=== PATIENT | female | born 1985 | race Caucasian/White ===

== ENCOUNTER 2016-08-17 09:42 | Emergency (ER) | payer OTHER ==
[~2016-08-17] VITALS: Ht 160 cm; Wt 93.8 kg
[2016-08-17 09:48] VITALS: TEMP 36.8; Ht 160 cm; Wt 93.8 kg
[2016-08-17] MEDS ORDERED: OXYCODONE HCL IR 5 MG TAB (IMMEDIATE RELEASE) PO STA (09:55)
--- NOTE | 2016-08-17 10:03 | EMERGENCY ROOM VISIT NOTE ---
History Report prepared by Olivia: Lavinia Duncan Under the Supervision of: Paitto HollingsworthO. 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 The patient states that she was using 3 foot stilts today and her foot got caught and she fell off of them onto the concrete. She reports that she hit her head on the concrete and complains of head pain, facial pain, left hand pain and finger pain, and knee pain. She denies any loss of consciousness, groin pain, neck pain, shoulder pain, and abdominal pain. The patient notes a history of hysterectomy. Source of History: patient Onset: just MEDICAL PAYMENT POSTER Position: arm (left) Timing: constant Associated Symptoms: + headache, No LOC, No neck pain, No abdominal pain Note: Pt complains of facial pain, left hand pain and finger pain, and knee pain. She denies any groin pain, neck pain. Review of Systems See HPI for pertinent positives & negatives. A total of 10 systems reviewed and were otherwise negative. Past Medical & Surgical Surgical Problems: (1) H/O: hysterectomy Family History No pertinent family history stated. Social History Smoking Status: Current Some Day Smoker Alcohol Use: occasionally Drug Use: none Marital Status: Housing Status: lives with significant other Occupation Status: employed Current/Historical Medications Scheduled Sertraline (Zoloft), 100 MG PO DAILY Scheduled PRN Oxycodone Immediate Rel Tab (Roxicodone Ir), 1-2 TAB PO Q4H PRN for Severe Pain Allergies Coded Allergies: Aspirin (Unverified Allergy, Unknown, ., 08/17/16) Penicillins (Unverified Allergy, Unknown, ., 08/17/16) Physical Exam Vital Signs Date Time Temp Pulse Resp B/P (MAP) Pulse Ox O2 Delivery O2 Flow Rate FiO2 08/17/16 09:48 36.8 91 17 115/71 96 Room Air Physical Exam GENERAL: Patient is awake, alert, somewhat anxious and uncomfortable appearing , ambulates without difficulyt . Patient is resting comfortably and showing no signs of anxiety EYES: The conjunctivae are clear. The pupils are round and reactive. EARS, NOSE, MOUTH AND THROAT: The nose is without any evidence of any deformity. Mucous membranes are moist tongue is midline. Mild tenderness over the left cheek, no deformity or depression appreciated. NECK: The neck is nontender and supple. Cervical spine was clinically cleared. RESPIRATORY: Normal respiratory effort is noted there is no evidence of wheezing rhonchi or rales CARDIOVASCULAR: Regular rate and rhythm noted there no murmurs rubs or gallops normal S1 normal S2 GASTROINTESTINAL: The abdomen is soft. Bowel sounds are present in all quadrants. Abdomen is nontender BACK: No midline tenderness or or step-off noted range of motion in flexion extension as well as rotation no signs of muscle spasm noted MUSCULOSKELETAL/EXTREMITIES: There is no evidence of gross deformity full range of motion is noted in the hips and shoulders. Full ROM was noted in both lower extremities, there was abrasion and tenderness over left patella, tenderness and swelling over left mid forearm over the left wrist, pain with ROM of left wrist, no significant deformity was appreciated. SKIN: There is no obvious evidence of any rash. There are no petechiae, pallor or cyanosis noted. NEUROLOGIC: Patient is awake alert and oriented x3 strength is symmetric patellar reflexes are 2+ bilaterally Medical Decision & Procedures ER Provider Diagnostic Interpretation: Radiology results as stated below per my review and radiologist interpretation: LEFT WRIST MIN 3 VIEWS ROUTINE FINDINGS: Alignment of the left wrist is anatomic. There is no acute fracture. Joint spaces are preserved. IMPRESSION: No acute fracture or dislocation of the left wrist. Electronically signed by: Anthony Samuel M.D. 08/17/2016 11:02 AM Dictated Date/Time: 08/17/2016 11:01 AM LEFT KNEE 1 OR 2 VIEWS ROUTINE FINDINGS: Alignment of the left knee is anatomic. There is no acute fracture. Joint spaces are preserved. There is no joint effusion. IMPRESSION: No acute fracture or joint effusion of the left knee. Electronically signed by: Anthony Samuel M.D. 08/17/2016 10:47 AM Dictated Date/Time: 08/17/2016 10:[address] SCAN OF THE FACIAL BONES WITHOUT IV CONTRAST FINDINGS: The skeletal structures are well mineralized. There is no evidence of facial bone fracture. The bony orbits are intact and the orbital contents are within normal limits. 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 The zygomatic arches, nasal bones, and pterygoid plates are preserved. The maxilla and mandible are intact. There are no layering blood products within the paranasal sinuses. The sinuses and mastoids are clear. The visualized calvarium and upper cervical spine are maintained. Partially imaged brain parenchyma is within normal limits. There are nasal, liver, and tongue piercings. IMPRESSION: There is no evidence of facial bone fracture. Electronically signed by: Thomas Levine M.D. 08/17/2016 11:18 AM Dictated Date/Time: 08/17/2016 11:[address] SCAN OF THE BRAIN WITHOUT IV CONTRAST FINDINGS: Brain parenchyma: The brain parenchyma is normal in appearance. There is no hemorrhage, mass effect, or evidence of acute territorial ischemia by CT criteria. Jackson-white matter is preserved. No extra-axial fluid collection is seen. Ventricles, sulci, cisterns: Normal in configuration. Intracranial vasculature: The visualized intracranial vasculature at the skull base is normal in appearance. Calvarium: There is no depressed calvarial fracture. Sinuses and mastoids: The visualized paranasal sinuses are clear. The mastoid air cells are well pneumatized. Orbits: The bony orbits are grossly intact. IMPRESSION: No acute intracranial abnormality. Electronically signed by: Thomas Levine M.D. 08/17/2016 11:10 AM Dictated Date/Time: 08/17/2016 11:09 AM LEFT HAND MIN 3 VIEWS ROUTINE FINDINGS: Alignment of the left hand is anatomic. There is no acute fracture within the left hand. Joint spaces are preserved. Carpal bones are intact. IMPRESSION: No acute fracture or dislocation within the left hand. Electronically signed by: Anthony Samuel M.D. 08/17/2016 11:03 AM Dictated Date/Time: 08/17/2016 11:02 AM LEFT FOREARM 2 VIEWS FINDINGS: AP and lateral views of the left forearm are obtained. No prior studies are available for comparison at the time of dictation. The skeletal structures are well mineralized. No fracture is seen. The elbow and wrist joints are grossly maintained. Mild dorsal soft tissue swelling is suggested. IMPRESSION: There is no radiographic evidence of left forearm fracture. Electronically signed by: Thomas Levine M.D. 08/17/2016 10:53 AM Dictated Date/Time: 08/17/2016 10:52 AM Medications Administered Medications (Trade) Dose Ordered Sig/Ray Route Start Time Stop Time Status Last Admin Dose Admin Oxycodone HCl (Roxicodone Immediate Rel Tab) 5 mg NOW STAT PO 08/17/16 09:55 08/17/16 09:57 DC 08/17/16 10:11 5 MG ED Course 0950: The patient was evaluated in room B3. A complete history and physical examination were performed. 0955: Oxycodone HCl 5mg PO. 1112: I reevaluated and updated the patient. 1144: I reevaluated and updated the patient. 1153: Upon reevaluation, the patient is doing well. I discussed the results and treatment plan with the patient. She verbalized agreement of the treatment plan. The patient was discharged home. Medical Decision Differential diagnosis: Etiologies such as fracture, dislocation, neurovascular compromise, compartment syndrome, soft tissue injury, as well as others were entertained. Medication Reconciliation: I attest that I have personally reviewed the patient' s current medications list. Blood pressure screening: Patient was found to have normal blood pressure on screening and does not require follow-up. The patient is a 30-year-old female who presented to the emergency department after a fall. 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 The patient fell from the height of the stilts which she thinks was roughly 3 feet. The patient struck the left side of her face her left upper extremity in her left knee. She was able to inability without difficulty. She did have a headache but no definite loss of consciousness was noted. The patient was treated with pain medication in the emergency department. I discussed the patient's review graphic studies with her. She was encouraged to rest and avoid any strenuous activity. She was also encouraged to follow-up with her doctor soon as possible for further evaluation. I also encouraged her to discuss whether or not she would require a referral to an orthopedic physician or have further radiographic studies if the pain in her left upper extremity especially did not improve. Otherwise she was encouraged to return to the emergency department immediately if symptoms change worsen or the need arises. [place] Drug Monitoring Program Search Results: patient reviewed within database Drug Monitoring Findings: The patient was prescribed Tramadol on the 12th but no other prescriptions. Impression Primary Impression: Fall Additional Impressions: Left wrist sprain Contusion of left arm Contusion of left knee Scribe Attestation The scribe's documentation has been prepared under my direction and personally reviewed by me in its entirety. I confirm that the note above accurately reflects all work, treatment, procedures, and medical decision making performed by me. Departure Information Dispostion Home / Self-Care Prescriptions Oxycodone Immediate Rel Tab (ROXICODONE IR) 5 Mg Tab 1-2 TAB PO Q4H Y for Severe Pain, #24 TAB Prov: Brody Savage, DO 08/17/16 Referrals No Doctor, Assigned (PCP) Forms HOME CARE DOCUMENTATION FORM, IMPORTANT VISIT INFORMATION, WORK / SCHOOL INSTRUCTIONS Patient Instructions ED Contusion Face, [facility] Additional Instructions Call your family to schedule a follow-up appointment. Continue using Tylenol as directed for mild pain. You may require further studies or possibly a referral to an orthopedic physician if symptoms do not improve. Discussed this with your family doctor. Problem Qualifiers Primary Impression: Fall Encounter type: initial encounter Qualified Codes: W19.XXXA - Unspecified fall, initial encounter Additional Impressions: Left wrist sprain Encounter type: initial encounter Qualified Codes: S63.502A - Unspecified sprain of left wrist, initial encounter Contusion of left arm Encounter type: initial encounter Qualified Codes: S40.022A - Contusion of left upper arm, initial encounter Contusion of left knee Encounter type: initial encounter Qualified Codes: S80.02XA - Contusion of left knee, initial encounter
--- NOTE | 2016-08-17 10:49 | DIAGNOSTIC IMAGING REPORT ---
LEFT KNEE 1 OR 2 VIEWS ROUTINE CLINICAL HISTORY: Left knee pain following fall. COMPARISON: None FINDINGS: Alignment of the left knee is anatomic. There is no acute fracture. Joint spaces are preserved. There is no joint effusion. IMPRESSION: No acute fracture or joint effusion of the left knee. Electronically signed by: Anthony Samuel M.D. 08/17/2016 10:47 AM Dictated Date/Time: 08/17/2016 10:46 AM
[2016-08-17] MEDS ORDERED: SERT-234 PO (10:54)
--- NOTE | 2016-08-17 10:54 | DIAGNOSTIC IMAGING REPORT ---
LEFT FOREARM 2 VIEWS CLINICAL HISTORY: Fall with left arm pain. FINDINGS: AP and lateral views of the left forearm are obtained. No prior studies are available for comparison at the time of dictation. The skeletal structures are well mineralized. No fracture is seen. The elbow and wrist joints are grossly maintained. Mild dorsal soft tissue swelling is suggested. IMPRESSION: There is no radiographic evidence of left forearm fracture. Electronically signed by: Thomas Levine M.D. 08/17/2016 10:53 AM Dictated Date/Time: 08/17/2016 10:52 AM
--- NOTE | 2016-08-17 11:03 | DIAGNOSTIC IMAGING REPORT ---
LEFT WRIST MIN 3 VIEWS ROUTINE CLINICAL HISTORY: Left wrist pain following fall. COMPARISON: None FINDINGS: Alignment of the left wrist is anatomic. There is no acute fracture. Joint spaces are preserved. IMPRESSION: No acute fracture or dislocation of the left wrist. Electronically signed by: Anthony Samuel M.D. 08/17/2016 11:02 AM Dictated Date/Time: 08/17/2016 11:01 AM
--- NOTE | 2016-08-17 11:04 | DIAGNOSTIC IMAGING REPORT ---
LEFT HAND MIN 3 VIEWS ROUTINE CLINICAL HISTORY: Left hand pain following fall. COMPARISON: None FINDINGS: Alignment of the left hand is anatomic. There is no acute fracture within the left hand. Joint spaces are preserved. Carpal bones are intact. IMPRESSION: No acute fracture or dislocation within the left hand. Electronically signed by: Anthony Samuel M.D. 08/17/2016 11:03 AM Dictated Date/Time: 08/17/2016 11:02 AM
--- NOTE | 2016-08-17 11:12 | DIAGNOSTIC IMAGING REPORT ---
CT SCAN OF THE BRAIN WITHOUT IV CONTRAST CLINICAL HISTORY: Fall. Trauma. COMPARISON STUDY: No priors. TECHNIQUE: Unenhanced axial CT scan of the brain is performed from the vertex to the skull base. Automated dose control exposure was utilized. FINDINGS: Brain parenchyma: The brain parenchyma is normal in appearance. There is no hemorrhage, mass effect, or evidence of acute territorial ischemia by CT criteria. Jackson-white matter is preserved. No extra-axial fluid collection is seen. Ventricles, sulci, cisterns: Normal in configuration. Intracranial vasculature: The visualized intracranial vasculature at the skull base is normal in appearance. Calvarium: There is no depressed calvarial fracture. Sinuses and mastoids: The visualized paranasal sinuses are clear. The mastoid air cells are well pneumatized. Orbits: The bony orbits are grossly intact. IMPRESSION: No acute intracranial abnormality. Electronically signed by: Thomas Levine M.D. 08/17/2016 11:10 AM Dictated Date/Time: 08/17/2016 11:09 AM
--- NOTE | 2016-08-17 11:19 | DIAGNOSTIC IMAGING REPORT ---
CT SCAN OF THE FACIAL BONES WITHOUT IV CONTRAST CLINICAL HISTORY: Fall. Left-sided facial injury. COMPARISON STUDY: CT scan of the brain performed concurrently on 08/17/2016. TECHNIQUE: High-resolution CT scan of the facial bones is performed. Images are reviewed in the axial, sagittal, and coronal planes. IV contrast was not administered for this examination. CT DOSE: 768.56 mGy.cm FINDINGS: The skeletal structures are well mineralized. There is no evidence of facial bone fracture. The bony orbits are intact and the orbital contents are within normal limits. 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 The zygomatic arches, nasal bones, and pterygoid plates are preserved. The maxilla and mandible are intact. There are no layering blood products within the paranasal sinuses. The sinuses and mastoids are clear. The visualized calvarium and upper cervical spine are maintained. Partially imaged brain parenchyma is within normal limits. There are nasal, liver, and tongue piercings. IMPRESSION: There is no evidence of facial bone fracture. Electronically signed by: Thomas Levine M.D. 08/17/2016 11:18 AM Dictated Date/Time: 08/17/2016 11:14 AM
[2016-08-17] MEDS ORDERED: OXYC1TAB3 PO (11:42)
[2016-08-17 11:58] VITALS: BP 131/83; PULSE 71; O2SAT 97
== END 2016-08-17 11:58 | disposition home or self-care (01) ==
LOC: C.EDB 09:44
DX: S63.502A Unspecified sprain of left wrist, initial encounter (principal); S40.022A Contusion of left upper arm, initial encounter; S80.02XA Contusion of left knee, initial encounter; W01.0XXA Fall on same level from slipping, tripping and stumbling without subsequent striking against object, initial encounter; F17.200 Nicotine dependence, unspecified, uncomplicated; Z90.710 Acquired absence of both cervix and uterus; Z79.899 Other long term (current) drug therapy; Z88.0 Allergy status to penicillin; Z88.6 Allergy status to analgesic agent

== ENCOUNTER 2017-03-17 12:41 | Emergency (ER) | payer OTHER ==
[~2017-03-17] VITALS: Ht 160 cm; Wt 101.9 kg
[~2017-03-17 12:41] MED LIST: SERT-234 PO
[2017-03-17 12:46] VITALS: Ht 160 cm; Wt 101.9 kg
[2017-03-17] MEDS ORDERED: SODIUM CHLORIDE 0.9% 1000ML 1,000 ML IV STA (13:51)
[2017-03-17 14:06] VITALS: O2SAT 100
[2017-03-17 14:14] LABS: BASO % 0.2 %; BASO ABS # 0.02 K/uL (0-0.2); EOS % 0.6 %; EOS ABS # 0.06 K/uL (0-0.5); HEMATOCRIT 39.8 % (37-47); HEMOGLOBIN 13.6 g/dL (12.0-16.0); IG# 0.05 K/uL (0.00-0.02); LYMPH % 17.5 %; LYMPH ABS # 1.75 K/uL (1.2-3.4); MEAN CELL VOLUME 90.2 fL (80-100); MEAN CORPUSCULAR HEMOGLOBIN 30.8 pg (25-34); MEAN CORPUSCULAR HGB CONC 34.2 g/dl (32-36); MEAN PLATELET VOLUME 9.4 fL (7.4-10.4); MONO % 6.1 %; MONO ABS # 0.61 K/uL (0.11-0.59); NEUT % 75.1 %; PLATELET COUNT 240 K/uL (130-400); RED CELL DISTRIBUTION WIDTH SD 42.8 fL (36.4-46.3); WHITE BLOOD COUNT 9.99 K/uL (4.8-10.8)
[2017-03-17 14:39] LABS: ALBUMIN 4.3 gm/dl (3.4-5.0); ALT/SGPT 15 U/L (12-78); AST/SGOT 12 U/L (15-37); BLOOD UREA NITROGEN 15 mg/dl (7-18); CALCIUM 9.6 mg/dl (8.5-10.1); CARBON DIOXIDE 27 mmol/L (21-32); CREATININE 0.89 mg/dl (0.60-1.20); GLUCOSE 65 mg/dl (70-99); POTASSIUM 3.9 mmol/L (3.5-5.1); SODIUM 137 mmol/L (136-145)
[2017-03-17 14:49] LABS: ALKALINE PHOSPHATASE 69 U/L (45-117); TOTAL PROTEIN 7.8 gm/dl (6.4-8.2)
--- NOTE | 2017-03-17 15:48 | DIAGNOSTIC IMAGING REPORT ---
HEAD WITHOUT CONTRAST (CT) CT DOSE: 638.56 mGycm HISTORY: Mental status change Dizziness TECHNIQUE: Multiaxial CT images of the head were performed without the use of intravenous contrast. A dose lowering technique was utilized adhering to the principles of ALARA. Comparison: 08/17/2016 Findings: The paranasal sinuses and mastoid air cells are clear. The calvarium and skull base are intact. The ventricles and sulci are within normal limits. There is no mass, hematoma, midline shift, or acute infarct. Impression: No acute intracranial abnormality. The above report was generated using voice recognition software. It may contain grammatical, syntax or spelling errors. Electronically signed by: Cash Hughes M.D. 03/17/2017 3:47 PM Dictated Date/Time: 03/17/2017 3:46 PM
--- NOTE | 2017-03-17 16:00 | EMERGENCY ROOM VISIT NOTE ---
History First contact with patient: 13:43 Chief Complaint: DIZZY Stated Complaint: DIZZY, FEELS LIKE GOING TO PASS OUT - SENT BY History of Present Illness The patient is a 31 year old female who presents to the Emergency Room via private vehicle accompanied by male with complaints of "dizzy, feels like going to pass outsent by ". The patient states that for the past 2 weeks she has been feeling dizzy. She states that it acutely worsened after she was weaned off her Zoloft and began up on Wellbutrin. She also states that she fell about one week ago and struck a 2x4 piece of wood. She has been dizzy, but denies any loss of consciousness with the fall. She has never had this before but does state that she has tried meclizine in the past without relief. She denies any history of vertigo, chest pain, shortness of breath or vomiting. The dizziness as if the room is moving. There is no speech troubles or weakness. She denies chance of noting that she had a hysterectomy in the past. Review of Systems A complete 10-point Review of Systems was discussed with the patient, with pertinent positives and negatives listed in the History of Present Illness. All remaining Review of Systems questions can be considered negative unless otherwise specified. Past Medical/Surgical History Surgical Problems: (1) H/O: hysterectomy Social History Smoking Status: Former Smoker Alcohol Use: occasionally Drug Use: none Marital Status: Housing Status: lives with significant other Occupation Status: employed Current/Historical Medications Scheduled Doxycycline (Monohydrate) (Doxycycline), 100 MG PO BID Sertraline (Zoloft), 100 MG PO DAILY Physical Exam Vital Signs Date Time Temp Pulse Resp B/P (MAP) Pulse Ox O2 Delivery O2 Flow Rate FiO2 03/17/17 17:18 36.8 78 15 112/68 100 03/17/17 17:17 78 15 112/68 100 Room Air 03/17/17 15:21 77 15 100 03/17/17 15:16 76 16 99 03/17/17 15:01 116/67 03/17/17 14:46 78 20 99 03/17/17 14:41 72 13 99 03/17/17 14:31 92/57 03/17/17 14:11 80 18 98 03/17/17 14:10 77 18 105/84 98 Room Air 03/17/17 14:09 105/84 03/17/17 14:08 131/95 03/17/17 14:07 79 03/17/17 14:06 76 18 121/70 98 Room Air 82 129/76 75 131/95 03/17/17 14:06 100 Room Air 03/17/17 12:46 36.8 97 18 117/74 98 Room Air Physical Exam VITAL SIGNS - Vital signs and nursing notes were reviewed. Stable. Afebrile. Normotensive. GENERAL -31-year-old female appearing her stated age who is in no acute distress. Communicates well with provider and answers questions appropriately. SKIN - Without rashes. No petechial rashes. HEAD - NC/AT. EYES - PERRL with EOMI bilaterally. Sclera anicteric. EARS - No deformities of external structures noted on gross examination bilaterally. External auditory canals without discharge or otorrhea. Tympanic membranes pearly garcia without retraction or bulging. No fluid or purulent material visualized behind the TM. Handle of malleus, umbo, cone of light, pars tensa/flaccid all easily visualized. NOSE - Midline and without cyanosis. No epistaxis or purulent drainage noted. MOUTH/OROPHARYNX - Without perioral cyanosis. Buccal mucosa pink and moist and without leukoplakia. Tongue midline with equal elevation of palate bilaterally. NECK - Neck with FROM. Supple to palpation. No nuchal rigidity. LUNGS - Chest wall symmetric without accessory muscle use, intercostals retractions, or central cyanosis. Normal vesicular breath sounds CTA B/L. No wheezes, rales, or rhonchi appreciated. CARDIAC - RRR with S1/S2. There is a systolic murmur noted. EXTREMITIES - No clubbing or peripheral cyanosis. No pretibial edema present. +5 /5 strength noted in UE/LE bilaterally. NEUROLOGIC - Cranial nerves II through XII grossly intact. Sensory intact to light touch throughout. PSYCH - A&O, and cooperates fully with examiner. Pt is very pleasant and interacts well with examiner. Medical Decision & Procedures ER Provider Diagnostic Interpretation: HEAD WITHOUT CONTRAST (CT) CT DOSE: 638.56 mGycm HISTORY: Mental status change Dizziness TECHNIQUE: Multiaxial CT images of the head were performed without the use of intravenous contrast. A dose lowering technique was utilized adhering to the principles of ALARA. Comparison: 08/17/2016 Findings: The paranasal sinuses and mastoid air cells are clear. The calvarium and skull base are intact. The ventricles and sulci are within normal limits. There is no mass, hematoma, midline shift, or acute infarct. Impression: No acute intracranial abnormality. The above report was generated using voice recognition software. It may contain grammatical, syntax or spelling errors. Electronically signed by: Cash Hughes M.D. 03/17/2017 3:47 PM Dictated Date/Time: 03/17/2017 3:46 PM Laboratory Results 03/17/17 14:00 Red Blood Count 4.41, Mean Corpuscular Volume 90.2, Mean Corpuscular Hemoglobin 30.8, Mean Corpuscular Hemoglobin Concent 34.2, Mean Platelet Volume 9.4, Neutrophils (%) (Auto) 75.1, Lymphocytes (%) (Auto) 17.5, Monocytes (%) (Auto) 6.1, Eosinophils (%) (Auto) 0.6, Basophils (%) (Auto) 0.2, Neutrophils # (Auto) 7.50, Lymphocytes # (Auto) 1.75, Monocytes # (Auto) 0.61, Eosinophils # (Auto) 0.06, Basophils # (Auto) 0.02 03/17/17 14:00 Test 03/17/17 14:00 White Blood Count 9.99 K/uL (4.8-10.8) Red Blood Count 4.41 M/uL (4.2-5.4) Hemoglobin 13.6 g/dL (12.0-16.0) Hematocrit 39.8 % (37-47) Mean Corpuscular Volume 90.2 fL (80-100) Mean Corpuscular Hemoglobin 30.8 pg (25-34) Mean Corpuscular Hemoglobin Concent 34.2 g/dl (32-36) Platelet Count 240 K/uL (130-400) Mean Platelet Volume 9.4 fL (7.4-10.4) Neutrophils (%) (Auto) 75.1 % Lymphocytes (%) (Auto) 17.5 % Monocytes (%) (Auto) 6.1 % Eosinophils (%) (Auto) 0.6 % Basophils (%) (Auto) 0.2 % Neutrophils # (Auto) 7.50 K/uL (1.4-6.5) Lymphocytes # (Auto) 1.75 K/uL (1.2-3.4) Monocytes # (Auto) 0.61 K/uL (0.11-0.59) Eosinophils # (Auto) 0.06 K/uL (0-0.5) Basophils # (Auto) 0.02 K/uL (0-0.2) RDW Standard Deviation 42.8 fL (36.4-46.3) RDW Coefficient of Variation 13.0 % (11.5-14.5) Immature Granulocyte % (Auto) 0.5 % Immature Granulocyte # (Auto) 0.05 K/uL (0.00-0.02) Prothrombin Time 10.4 SECONDS (9.0-12.0) Prothromb Time International Ratio 1.0 (0.9-1.1) Activated Partial Thromboplast Time 27.0 SECONDS (21.0-31.0) Partial Thromboplastin Ratio 1.0 Urine Color YELLOW Urine Appearance CLEAR (CLEAR) Urine pH 6.0 (4.5-7.5) Urine Specific [place] 1.018 (1.000-1.030) Urine Protein NEG (NEG) Urine Glucose (UA) NEG (NEG) Urine Ketones NEG (NEG) Urine Occult Blood NEG (NEG) Urine Nitrite NEG (NEG) Urine Bilirubin NEG (NEG) Urine Urobilinogen NEG (NEG) Urine Leukocyte Esterase TRACE (NEG) Urine WBC (Auto) 1-5 /hpf (0-5) Urine RBC (Auto) 0-4 /hpf (0-4) Urine Hyaline Casts (Auto) 1-5 /lpf (0-5) Urine Epithelial Cells (Auto) >30 /lpf (0-5) Urine Bacteria (Auto) 2+ (NEG) Anion Gap 6.0 mmol/L (3-11) Est Creatinine Clear Calc Drug Dose 103.4 ml/min Estimated GFR () 99.4 Estimated GFR (Non- 85.8 BUN/Creatinine Ratio 17.1 (10-20) Calcium Level 9.6 mg/dl (8.5-10.1) Magnesium Level 2.2 mg/dl (1.8-2.4) Total Bilirubin 0.6 mg/dl (0.2-1) Aspartate Amino Transf (AST/SGOT) 12 U/L (15-37) Alanine Aminotransferase (ALT/SGPT) 15 U/L (12-78) Alkaline Phosphatase 69 U/L (45-117) Troponin I < 0.015 ng/ml (0-0.045) Total Protein 7.8 gm/dl (6.4-8.2) Albumin 4.3 gm/dl (3.4-5.0) Globulin 3.5 gm/dl (2.5-4.0) Albumin/Globulin Ratio 1.2 (0.9-2) Thyroid Stimulating Hormone (TSH) 1.880 uIu/ml (0.300-4.500) Lyme Disease IgG Antibody NEG (NEG) Medications Administered Medications (Trade) Dose Ordered Sig/Ray Route Start Time Stop Time Status Last Admin Dose Admin Sodium Chloride 1,000 ml @ 999 mls/hr Q1H1M STAT IV 03/17/17 13:51 03/17/17 14:51 DC 03/17/17 14:12 999 MLS/HR Medical Decision Patient was seen and evaluated as above. She presents to us today with dizziness. She is nontoxic on exam, and vital signs are stable. IV access was initiated, and the above workup was performed. She presents to us today with 2 weeks of dizziness. She recently was weaned off of Zoloft (Wellbutrin. There was only minimal dizziness before this titration change. There is no concerning leukocytosis or anemia. Coags normal. Patient metabolic panel reveals no evidence of kidney or liver failure. Her glucose is slightly low at 65. TSH normal. Troponin negative. Urine reveals trace leukocyte, 2+ urine but many epithelial cells. Lyme IgM positive. I suspect that the dizziness prior to be from Lyme disease, and was exacerbated and worsened by her recent medication change. Her EKG per my interpretation does reveal normal sinus rhythm, but there is T-wave inversion in leads V1 and V2. There is no previous for comparison. She does note that she was worked up in the past for her murmur , but has not recently. I recommend she follow up with the family doctor for her EKG and murmur. I also we'll begin treatment with doxycycline. She was offered medication to help with the dizziness, but notes that she has had meclizine in the past without relief. I suspect the dizziness is likely related to her medication change as well as the Lyme disease. I recommend she call her family doctor to schedule follow-up. She was educated upon management , educated upon worrisome symptoms in which to return, had questions answered at discharge, it was discharged initially. In the evaluation and treatment of this patient, the following differential diagnoses were considered: Concussion, Contrecoup Injury, Brain Tumor, Depression, Encephalitis, Hypothyroidism, Meningitis, CVA, TIA, Migraine, Cluster Headache, Intracranial Abnormality, Intracranial Hemorrhage, Subdural Hematoma, Subarachnoid Hemorrhage, Hydrocephalus. Impression Primary Impression: Dizziness Additional Impression: Lyme disease, acute Departure Information Dispostion Home / Self-Care Condition GOOD Prescriptions Doxycycline (Monohydrate) (Doxycycline) 100 Mg Cap 100 MG PO BID for 21 Days, #42 TABS Prov: Porfirio Jorge PA-C 03/17/17 Referrals Kendell Balbuena PA-C (PCP) Patient Instructions [facility] Additional Instructions You have been treated in the Emergency Department for a dizziness. Initial Lyme testing is positive. Please call back in 5 days at [phone] for final results. This may also be your medication (wellbutrin) Please also follow up for the ekg For Lyme, you have been prescribed Doxycycline to be taken as prescribed. This is an antibiotic. All antibiotics have the potential to cause diarrhea. Stop this medication and contact a medical provider if you were to develop any significant adverse side effects including: wheezing, shortness of breath, passing out, vomiting, or a diffuse rash. Always take antibiotics as directed and COMPLETE the ENTIRE course regardless of the improvement of your symptoms. Protect yourself with sunscreen while on this antibiotic as it increases your skin's sensitivity to the light and cause bad sunburns. In addition, you should be sure to take this pill after eating. Make sure the pill is completely swallowed as this medication can cause irritation to the lining of the esophagus. Do NOT drink milk or eat anything with large amounts of Calcium in them 1 hour prior to taking this medication as this will decrease the effectiveness of the medication. For pain control, you can use the following [id number] medicines - Regular strength (325mg/tab) Tylenol (acetaminophen) 2 tabs every 4-6 hours as needed. Do not exceed 12 tablets in a 24 hour period. Avoid taking more than 3 grams (3000 mg) of Tylenol per day. This includes any other sources of acetaminophen you may take on a regular basis. - Regular strength (200 mg/tab) Advil (ibuprofen) 1-2 tabs every 4-6 hours as needed. Do not exceed a dose of 3200 mg per day. You should schedule a follow-up appointment in 2-3 days with your Primary Care Provider or established Neurologist for further evaluation and treatment of your dizziness. Return to the Emergency Department if your current symptoms worsen despite treatment course outlined above, or if you develop any of the following symptoms : intractable pain despite aforementioned treatment course, visual disturbances , loss of vision, unilateral weakness or facial drooping, slurring of speech, loss of coordination, or loss of consciousness. Problem Qualifiers
[2017-03-17] MEDS ORDERED: DOXY-300 PO (16:15)
[2017-03-17 17:18] VITALS: BP 112/68; PULSE 78; TEMP 36.8; O2SAT 100
== END 2017-03-17 17:19 | disposition home or self-care (01) ==
LOC: C.EDB 12:42 → C.EDC 17:19
DX: R42 Dizziness and giddiness (principal); A69.20 Lyme disease, unspecified; Z87.891 Personal history of nicotine dependence